=== PATIENT | male | born 1995 | race Caucasian/White ===

== ENCOUNTER 2018-04-09 17:02 | Emergency (ER) | payer MEDICARE, MEDICAID ==
[~2018-04-09] VITALS: Ht 91.4 cm; Wt 49.9 kg
[~2018-04-09 17:02] MED LIST: BUDESONIDE 0.5 MG/2 ML; FAMOTIDINE 40 MG/5 ML; LEVETIRACETAM 100 MG/ML; VALPROIC ACID 250 MG/5 ML; [UNRECOGNIZED DRUG - OTHER]
--- NOTE | 2018-04-09 17:05 | NUR ---
PT bib family c/o bleeding to g-tube site. G TUBE SITE HAS NO CURRENT BLEEDING. WILL CONTINUE TO MONITOR.
--- NOTE | 2018-04-09 18:07 | NUR ---
[facility] CALLED,SPOKE WITH [facility],SHE WILL REVIEW RECORD AND FIND OUT WHO THE DRS ARE AND GIVE US A CALL BACK.
[2018-04-09 18:46] LABS: BASOPHILS % (AUTO) 0.4 % (0.0-2.0); EOSINOPHILS % (AUTO) 1.2 % (0.0-6.0); HEMATOCRIT 47 % (39-51); HEMOGLOBIN 16.9 g/dL (13.5-17.5); LYMPHOCYTES # (AUTO) 2.5 /CMM (0.8-4.8); LYMPHOCYTES % (AUTO) 47.3 % (20.0-44.0); MEAN CORPUSCULAR HGB CONC 36 g/dl (31.0-36.0); MEAN CORPUSCULAR VOLUME 92 fL (80-96); MONOCYTES # (AUTO) 0.4 /CMM (0.1-1.30); MONOCYTES % (AUTO) 8.2 % (2.0-12.0); NEUTROPHILS # (AUTO) 2.2 /CMM (1.8-8.9); NEUTROPHILS % (AUTO) 42.9 % (43.0-81.0); PLATELET COUNT (AUTO) 140 /CMM (150-450); WHITE BLOOD COUNT (AUTO) 5.2 K/uL (4.3-11.0)
[2018-04-09 18:56] LABS: CREATININE 0.8 mg/dL (0.6-1.3); POTASSIUM 3.9 mmol/L (3.5-5.1)
--- NOTE | 2018-04-09 19:29 | NUR ---
Patient discharged to home in stable condition. Written and verbal after care instructions given. Patient verbalizes understanding of instruction.
[2018-04-09 19:32] VITALS: BP 105/52
== END 2018-04-09 19:34 | disposition home or self-care (01) ==
LOC: ER 17:04
DX: K94.21 Gastrostomy hemorrhage (principal); F84.0 Autistic disorder; G40.909 Epilepsy, unspecified, not intractable, without status epilepticus; R13.10 Dysphagia, unspecified
CPT/HCPCS: 36415; 80048; 85025; 99283; A4606; Z7610